=== PATIENT | male | born 1945 | race Caucasian/White ===

== ENCOUNTER → 2023-11-23 | Outpatient (CLI) | payer MEDICARE, BC | END | disposition home or self-care (01) | LOC: RAD 12:04 | PROVIDERS: ATTEND Specialist | DX: M19.011 Primary osteoarthritis, right shoulder (principal); M25.511 Pain in right shoulder; M24.011 Loose body in right shoulder; M25.711 Osteophyte, right shoulder; M25.411 Effusion, right shoulder | CPT/HCPCS: 73200 ==

== ENCOUNTER 2024-01-17 07:23 | Day surgery (SDC) | payer MEDICARE, BC ==
[2024-01-17] VITALS (14 sets, daily range): BP systolic 117–171; BP diastolic 51–97; PULSE 68–93; RESP 11–21; TEMP 98; O2SAT 93–96
[~2024-01-17] VITALS: Ht 177.8 cm; Wt 92.3 kg
[2024-01-17] MEDS ORDERED: LORazepam 0.5 MG tablet PO PRN (08:00)
[2024-01-17] MEDS ORDERED: nitroGLYCERIN 0.4mg SUBLingual tab SL PRN ×2 (08:00→10:40)
[2024-01-17] MEDS ORDERED: diphenhydrAMINE 25mg capsule PO PRN (08:00)
[2024-01-17] MEDS ORDERED: normal saline 1,000 ML IV SCH (08:00)
[2024-01-17 08:35] LABS: BASOPHILS # (AUTO) 0.1 X10'3 (0-0.2); BASOPHILS % (AUTO) 0.7 % (0-1); EOSINOPHILS # (AUTO) 0.1 X10'3 (0-0.9); EOSINOPHILS % (AUTO) 1.2 % (0-6); HEMATOCRIT 43.3 % (42.0-52.0); HEMOGLOBIN 14.6 g/dl (14.0-17.9); LYMPHOCYTES # (AUTO) 1.3 X10'3 (1.1-4.8); MEAN CORPUSCULAR HEMOGLOBIN 33.7 PG (27.0-31.0); MEAN CORPUSCULAR HGB CONC 33.7 g/dL (33.0-36.5); MEAN CORPUSCULAR VOLUME 100.1 FL (78-98); MONOCYTES # (AUTO) 0.7 X10'3 (0-0.9); MONOCYTES % (AUTO) 9.7 % (2-12); NEUTROPHILS # (AUTO) 5.4 X10'3 (1.8-7.7); NEUTROPHILS % (AUTO) 71.4 % (42-75); PLATELET COUNT 190 X10'3 (140-440); RED BLOOD COUNT 4.33 X10'6 (4.70-6.10); RED CELL DISTRIBUTION WIDTH 15.6 % (11.5-14.5); WHITE BLOOD COUNT 7.6 X10'3 (4.5-11.0)
[2024-01-17 08:44] LABS: ALBUMIN 3.5 G/DL (3.4-5.0); ANION GAP 8 (8-16); BLOOD UREA NITROGEN 16 MG/DL (7-18); BUN/CREATININE RATIO 15.4 (10.0-20.0); CALCIUM 9.6 MG/DL (8.5-10.1); CHLORIDE 105 MMOL/L (99-107); CREATININE 1.04 MG/DL (0.60-1.10); GLUCOSE 113 MG/DL (70-104); POTASSIUM 3.8 MMOL/L (3.5-5.1); SODIUM 139 MMOL/L (135-145); TOTAL CARBON DIOXIDE 26.3 MMOL/L (24-32); eCRCL 62 ML/MIN; eGFR 69 ML/MIN
[2024-01-17 08:46] LABS: INR 1.1 INR; PROTHROMBIN TIME 11.4 SECONDS (9.0-12.0)
[2024-01-17] MEDS ORDERED: FLO0.4C PO (09:12)
[2024-01-17] MEDS ORDERED: ATOR40TA72 PO (09:12)
[2024-01-17] MEDS ORDERED: UBID100C16 PO (09:32)
[2024-01-17] MEDS ORDERED: FISH1CAP15 PO (09:32)
[2024-01-17] MEDS ORDERED: Zinc PO (09:32)
[2024-01-17] MEDS ORDERED: MULT-620 PO (09:32)
[2024-01-17] MEDS ORDERED: FERR-121 PO (09:32)
[2024-01-17] MEDS ORDERED: CHOL200012 PO (09:32)
[2024-01-17] MEDS ORDERED: Turmeric PO (09:32)
[2024-01-17] MEDS ORDERED: LIDOcaine 1% 30ml preserv. free vial ONE (10:16)
[2024-01-17] MEDS ORDERED: fentaNYL/PF 50MCG/1 ML 2ML syringe ONE (10:16)
[2024-01-17] MEDS ORDERED: midazolam 1 mg/ML 2ml injection ONE (10:16)
[2024-01-17] MEDS ORDERED: iohexol 350MG/ML 100ml bottle IV ONE (10:17)
[2024-01-17] MEDS ORDERED: iohexol 350 MG/ML 50ML vial IV ONE (10:17)
[2024-01-17] MEDS ORDERED: ondansetron/PF 4mg/2ml inj IV PRN (10:35)
[2024-01-17] MEDS ORDERED: OXAZEpam 15mg capsule PO PRN (10:40)
[2024-01-17] MEDS ORDERED: HYDROcodone/acetaminophen 5mg/325mg tablet PO PRN (10:40)
[2024-01-17] MEDS ORDERED: HYDROcodone/acetaminophen 10/325mg tab PO PRN (10:40)
[2024-01-17] MEDS ORDERED: normal saline 1000ml 1,000 ML IV ONE (10:45)
[2024-01-17] MEDS ORDERED: proCHLORperazine 10 MG/2 ml inj IV PRN (10:45)
== END 2024-01-17 15:57 | disposition home or self-care (01) ==
LOC: SSTAY O 07:23
PROVIDERS: ATTEND Internal Medicine Cardiovascular Disease
DX: R94.39 Abnormal result of other cardiovascular function study (principal); I25.10 Atherosclerotic heart disease of native coronary artery without angina pectoris; I25.2 Old myocardial infarction
CPT/HCPCS: 36415; 71046; 80048; 85025; 85610; 93005; 93458; 99152; A4663; A6258; C1760; J1644; J2001; J2250; J3010; J7030; Q9967; Z7610; 99153; J3490

== ENCOUNTER 2024-01-31 14:18 | Outpatient (CLI) | payer MEDICARE, BC ==
[~2024-01-31] VITALS: Ht 177.8 cm; Wt 91.6 kg
[~2024-01-31 14:18] MED LIST: ATOR40TA72 PO; CHOL200012 PO; FERR-121 PO; FISH1CAP15 PO; FLO0.4C PO; MULT-620 PO; Turmeric PO; UBID100C16 PO; Zinc PO
[2024-01-31 15:57] LABS: BASOPHILS % (AUTO) 0.3 % (0-1); EOSINOPHILS % (AUTO) 0.4 % (0-6); MEAN CORPUSCULAR HEMOGLOBIN 32.8 PG (27.0-31.0); MEAN CORPUSCULAR HGB CONC 32.9 g/dL (33.0-36.5); MEAN CORPUSCULAR VOLUME 99.7 FL (78-98); MEAN PLATELET VOLUME 8.9 FL (7.4-10.4); MONOCYTES # (AUTO) 1.2 X10'3 (0-0.9); MONOCYTES % (AUTO) 12.1 % (2-12); NEUTROPHILS # (AUTO) 7.9 X10'3 (1.8-7.7); NEUTROPHILS % (AUTO) 77.2 % (42-75); PRE OP HEMATOCRIT 39.9 % (42.0-52.0); PRE OP HEMOGLOBIN 13.1 g/dL (14.0-17.9); PRE OP PLATELET COUNT 219 X10'3 (140-440); PRE OP WHITE BLOOD COUNT 10.2 10'3 (4.8-10.8); RED CELL DISTRIBUTION WIDTH 15.2 % (11.5-14.5)
[2024-01-31 16:16] LABS: PRE OP INR 1.1 INR; PRE OP PROTIME 11.4 SECONDS (9.0-12.0)
[2024-01-31 16:50] LABS: ALBUMIN 3.2 G/DL (3.4-5.0); ALBUMIN/GLOBULIN RATIO 0.9 (1.1-1.5); ALKALINE PHOSPHATASE 96 IU/L (46-116); BLOOD UREA NITROGEN 27 MG/DL (7-18); BUN/CREATININE RATIO 27.3 (10.0-20.0); CALCIUM 9.7 MG/DL (8.5-10.1); CHLORIDE 105 MMOL/L (99-107); CREATININE 0.99 MG/DL (0.60-1.10); PRE OP ALT 14 U/L (30-65); PRE OP ANION GAP 8 (8-16); PRE OP AST 10 U/L (10-37); PRE OP BILIRUB, TOTAL 0.5 MG/DL (0.0-1.0); PRE OP GLUCOSE 133 MG/DL (70-104); PRE OP POTASSIUM 3.9 MMOL/L (3.4-5.1); PRE OP SODIUM 139 MMOL/L (135-145); TOTAL CARBON DIOXIDE 25.7 MMOL/L (24-32); TOTAL PROTEIN 6.9 G/DL (6.4-8.2); eGFR 73 ML/MIN
[2024-02-04] MEDS ORDERED: TRAM50TA2 PO (02:24)
[2024-02-06] MEDS ORDERED: tranexamic acid inj. 1,000 MG in normal saline IV soln 100ML IV ONE (05:30)
[2024-02-06] MEDS ORDERED: cefazolin 2gm/D5W 100mL 100 ML IV ONE (05:30)
[2024-02-06] MEDS ORDERED: ringers solution, lacted 1,000 ML IV SCH (05:30)
[2024-02-06] MEDS ORDERED: famotidine 20mg tablet PO ONE (05:30)
[2024-02-07] MEDS ORDERED: LISI20TA28 PO (10:27)
[2024-02-07] MEDS ORDERED: PRED10TA PO (10:27)
[2024-02-07] MEDS ORDERED: NOR5T PO (10:27)
== END 2024-01-31 23:59 | disposition home or self-care (01) ==
LOC: PRE-OP 14:18 → EDSTATUS 02-06 12:15
PROVIDERS: ATTEND Specialist
DX: Z01.818 Encounter for other preprocedural examination (principal); M19.011 Primary osteoarthritis, right shoulder; I10 Essential (primary) hypertension; E78.00 Pure hypercholesterolemia, unspecified; I25.2 Old myocardial infarction; Z85.46 Personal history of malignant neoplasm of prostate; Z79.891 Long term (current) use of opiate analgesic; Z79.899 Other long term (current) drug therapy
CPT/HCPCS: 36415; 71046; 80053; 85025; 85610; 85730; 86885; 86900; 86901; 87081; A6446; J0690; J3490; J7120

== ENCOUNTER 2024-02-01 11:32 | Observation (INO) | payer MEDICARE, BC ==
[~2024-02-01] VITALS: Ht 177.8 cm; Wt 91.8 kg
[~2024-02-01 11:32] MED LIST changes: -CHOL200012 PO; -FERR-121 PO; -FISH1CAP15 PO; -MULT-620 PO; -Turmeric PO; -UBID100C16 PO; -Zinc PO
[2024-02-01] MEDS: orphenadrine citrate 60mg/2ml inj. IM ONE (13:01)
[2024-02-01] MEDS: oxyCODONE IR 5mg (immed. release) tablet PO ONE (13:02)
[2024-02-01] MEDS ORDERED: morphine 2 MG/ML inj. syringe IV PRN ×2 (15:20)
[2024-02-01] MEDS ORDERED: magnesium hydroxide 30ml (MOM) UD suspension PO PRN (15:20)
[2024-02-01] MEDS ORDERED: acetaminophen 325mg tablet PO PRN ×2 (15:20)
[2024-02-01] MEDS ORDERED: potassium Cl 40MEQ/1/2NS 520ml 520 ML IV PRN (15:20)
[2024-02-01] MEDS ORDERED: potassium Cl 20 mEq SR tablet PO PRN ×2 (15:20)
[2024-02-01] MEDS ORDERED: magnesium sulf-water 4G/100mL 100 ML IV PRN (15:20)
[2024-02-01] MEDS ORDERED: magnesium sulf-water 2g/50mL 50 ML IV PRN (15:20)
[2024-02-01] MEDS ORDERED: mag hydrox/Alum hydrox/simeth 30ml oral suspension PO PRN (15:20)
[2024-02-01] MEDS ORDERED: ondansetron/PF 4mg/2ml inj IV PRN (15:20)
[2024-02-01] MEDS ORDERED: magnesium Cl slow-release 64mg tablet PO PRN (15:20)
[2024-02-01 16:08] LABS: BASOPHILS % (AUTO) 0.4 % (0-1); EOSINOPHILS % (AUTO) 0.2 % (0-6); HEMATOCRIT 40.8 % (42.0-52.0); HEMOGLOBIN 13.8 g/dl (14.0-17.9); LYMPHOCYTES # (AUTO) 0.9 X10'3 (1.1-4.8); LYMPHOCYTES % (AUTO) 9.1 % (21-51); MEAN CORPUSCULAR HEMOGLOBIN 33.8 PG (27.0-31.0); MEAN CORPUSCULAR HGB CONC 33.8 g/dL (33.0-36.5); MEAN CORPUSCULAR VOLUME 100.1 FL (78-98); MONOCYTES # (AUTO) 1.1 X10'3 (0-0.9); MONOCYTES % (AUTO) 11.8 % (2-12); NEUTROPHILS # (AUTO) 7.4 X10'3 (1.8-7.7); NEUTROPHILS % (AUTO) 78.5 % (42-75); PLATELET COUNT 224 X10'3 (140-440); RED BLOOD COUNT 4.07 X10'6 (4.70-6.10); RED CELL DISTRIBUTION WIDTH 15.1 % (11.5-14.5); WHITE BLOOD COUNT 9.5 X10'3 (4.5-11.0)
[2024-02-01 16:19] LABS: ALANINE AMINOTRANSFERASE 15 U/L (12-78); ALBUMIN 3.2 G/DL (3.4-5.0); ALBUMIN/GLOBULIN RATIO 0.8 (1.1-1.5); ALKALINE PHOSPHATASE 94 IU/L (46-116); ANION GAP 11 (8-16); ASPARTATE AMINO TRANSFERASE 15 U/L (10-37); BILIRUBIN,TOTAL 0.8 MG/DL (0.1-1.0); BLOOD UREA NITROGEN 22 MG/DL (7-18); BUN/CREATININE RATIO 21.6 (10.0-20.0); CALCIUM 9.4 MG/DL (8.5-10.1); CHLORIDE 103 MMOL/L (99-107); CREATININE 1.02 MG/DL (0.60-1.10); GLUCOSE 122 MG/DL (70-104); POTASSIUM 3.5 MMOL/L (3.5-5.1); SODIUM 141 MMOL/L (135-145); TOTAL CARBON DIOXIDE 27.4 MMOL/L (24-32); TOTAL PROTEIN 7.2 G/DL (6.4-8.2); eCRCL 64 ML/MIN; eGFR 71 ML/MIN
[2024-02-01 19:44] VITALS: BP 123/61; PULSE 86; RESP 18; TEMP 97.9; O2SAT 96
[2024-02-01 20:00] VITALS: RESP 18; O2SAT 96
[2024-02-01] MEDS: docusate sod 100mg capsule PO SCH (20:37)
[2024-02-01] MEDS: tamsulosin 0.4mg capsule PO SCH (20:37)
[2024-02-01] MEDS: enoxaparin 40mg/0.4ml syringe SQ SCH (20:37)
[2024-02-01] MEDS: HYDROcodone/acetaminophen 10/325mg tab PO PRN (20:38)
[2024-02-01 22:00] VITALS: BP 152/84; PULSE 77; RESP 18; TEMP 98.6; O2SAT 97
[2024-02-02] MEDS: HYDROcodone/acetaminophen 5mg/325mg tablet PO PRN (05:35)
[2024-02-02 06:00] VITALS: BP 181/102; PULSE 76; RESP 16; TEMP 98.3; O2SAT 97
[2024-02-02 06:38] LABS: BASOPHILS # (AUTO) 0.1 X10'3 (0-0.2); BASOPHILS % (AUTO) 0.9 % (0-1); EOSINOPHILS # (AUTO) 0.2 X10'3 (0-0.9); EOSINOPHILS % (AUTO) 2.3 % (0-6); HEMATOCRIT 37.3 % (42.0-52.0); HEMOGLOBIN 12.6 g/dl (14.0-17.9); LYMPHOCYTES # (AUTO) 1.2 X10'3 (1.1-4.8); LYMPHOCYTES % (AUTO) 15.4 % (21-51); MEAN CORPUSCULAR HEMOGLOBIN 33.4 PG (27.0-31.0); MEAN CORPUSCULAR HGB CONC 33.7 g/dL (33.0-36.5); MEAN CORPUSCULAR VOLUME 99.2 FL (78-98); MONOCYTES # (AUTO) 1.1 X10'3 (0-0.9); MONOCYTES % (AUTO) 13.8 % (2-12); NEUTROPHILS # (AUTO) 5.2 X10'3 (1.8-7.7); NEUTROPHILS % (AUTO) 67.6 % (42-75); PLATELET COUNT 198 X10'3 (140-440); RED BLOOD COUNT 3.76 X10'6 (4.70-6.10); WHITE BLOOD COUNT 7.6 X10'3 (4.5-11.0)
[2024-02-02 06:49] LABS: ALANINE AMINOTRANSFERASE 11 U/L (12-78); ALBUMIN 2.6 G/DL (3.4-5.0); ALBUMIN/GLOBULIN RATIO 0.7 (1.1-1.5); ALKALINE PHOSPHATASE 77 IU/L (46-116); ANION GAP 8 (8-16); ASPARTATE AMINO TRANSFERASE 8 U/L (10-37); BILIRUBIN,TOTAL 0.6 MG/DL (0.1-1.0); BLOOD UREA NITROGEN 22 MG/DL (7-18); BUN/CREATININE RATIO 24.4 (10.0-20.0); CALCIUM 8.9 MG/DL (8.5-10.1); CHLORIDE 105 MMOL/L (99-107); GLUCOSE 110 MG/DL (70-104); POTASSIUM 3.7 MMOL/L (3.5-5.1); SODIUM 139 MMOL/L (135-145); TOTAL CARBON DIOXIDE 26.5 MMOL/L (24-32); TOTAL PROTEIN 6.2 G/DL (6.4-8.2); eCRCL 72 ML/MIN; eGFR 82 ML/MIN
[2024-02-02 10:00] VITALS: BP 153/84; PULSE 74; RESP 20; TEMP 98.2; O2SAT 97
[2024-02-02] MEDS: atorvastatin 20mg tablet PO SCH (10:35)
[2024-02-02] MEDS ORDERED: CYCL-1 PO (15:05)
[2024-02-02] MEDS ORDERED: HYDR-3965 PO (15:05)
[2024-02-02] MEDS ORDERED: ACET-1008 PO (15:07)
[2024-02-02 18:00] VITALS: BP 144/84; PULSE 96; RESP 22; TEMP 98.3; O2SAT 96
[2024-02-02 20:00] VITALS: RESP 22; O2SAT 96
[2024-02-02] MEDS: cyclobenzaprine 10mg tablet PO PRN (20:18)
[2024-02-02 22:00] VITALS: BP 154/90; PULSE 79; RESP 15; TEMP 98.6; O2SAT 97
[2024-02-03 06:00] VITALS: BP 155/90; PULSE 78; RESP 14; TEMP 98.2; O2SAT 94
[2024-02-03 06:43] LABS: BASOPHILS % (AUTO) 0.5 % (0-1); EOSINOPHILS # (AUTO) 0.2 X10'3 (0-0.9); HEMATOCRIT 36.9 % (42.0-52.0); HEMOGLOBIN 12.4 g/dl (14.0-17.9); LYMPHOCYTES % (AUTO) 12.8 % (21-51); MEAN CORPUSCULAR HEMOGLOBIN 33.8 PG (27.0-31.0); MEAN CORPUSCULAR HGB CONC 33.7 g/dL (33.0-36.5); MEAN CORPUSCULAR VOLUME 100.4 FL (78-98); MONOCYTES # (AUTO) 1.1 X10'3 (0-0.9); MONOCYTES % (AUTO) 14.1 % (2-12); NEUTROPHILS # (AUTO) 5.5 X10'3 (1.8-7.7); NEUTROPHILS % (AUTO) 69.6 % (42-75); PLATELET COUNT 214 X10'3 (140-440); RED BLOOD COUNT 3.67 X10'6 (4.70-6.10); RED CELL DISTRIBUTION WIDTH 14.4 % (11.5-14.5); WHITE BLOOD COUNT 7.9 X10'3 (4.5-11.0)
[2024-02-03 07:02] LABS: ALANINE AMINOTRANSFERASE 10 U/L (12-78); ALBUMIN 2.5 G/DL (3.4-5.0); ALBUMIN/GLOBULIN RATIO 0.7 (1.1-1.5); ALKALINE PHOSPHATASE 77 IU/L (46-116); ANION GAP 7 (8-16); ASPARTATE AMINO TRANSFERASE 11 U/L (10-37); BILIRUBIN,TOTAL 0.4 MG/DL (0.1-1.0); BLOOD UREA NITROGEN 20 MG/DL (7-18); BUN/CREATININE RATIO 22.7 (10.0-20.0); CHLORIDE 104 MMOL/L (99-107); CREATININE 0.88 MG/DL (0.60-1.10); GLUCOSE 105 MG/DL (70-104); SODIUM 139 MMOL/L (135-145); TOTAL CARBON DIOXIDE 27.8 MMOL/L (24-32); TOTAL PROTEIN 6.2 G/DL (6.4-8.2); eCRCL 74 ML/MIN; eGFR 84 ML/MIN
[2024-02-03 08:45] VITALS: RESP 18; O2SAT 95
[2024-02-03 10:00] VITALS: BP 136/74; PULSE 71; RESP 18; TEMP 97.6; O2SAT 95
[2024-02-04] MEDS ORDERED: TRAM50TA2 PO (02:24)
[2024-02-07] MEDS ORDERED: PRED10TA PO (10:27)
[2024-02-07] MEDS ORDERED: LISI20TA28 PO (10:27)
[2024-02-07] MEDS ORDERED: NOR5T PO (10:27)
== END 2024-02-03 13:50 | disposition home or self-care (01) ==
LOC: ER 11:32 → ED HOLD 15:22 → SUR 3N 19:40
PROVIDERS: ADMIT Internal Medicine; ATTEND Internal Medicine
DX: M54.41 Lumbago with sciatica, right side (principal); M79.671 Pain in right foot; M19.011 Primary osteoarthritis, right shoulder; M48.061 Spinal stenosis, lumbar region without neurogenic claudication; E78.5 Hyperlipidemia, unspecified; I10 Essential (primary) hypertension; N40.0 Benign prostatic hyperplasia without lower urinary tract symptoms; G89.29 Other chronic pain; Z79.899 Other long term (current) drug therapy
CPT/HCPCS: 96372; 97161; 99284; G0378; 36415; 72131; 72148; 72195; 73718; 80053; 82948; 85025; 85651; 86140; 87081; 97116; 97530; 99285; J1650; J2360